=== PATIENT | male | born 1985 | race Hispanic/Latino ===

== ENCOUNTER 2022-12-25 10:30 | Inpatient (IN) | payer OTHER ==
[~2022-12-25] VITALS: Ht 185.4 cm; Wt 212.7 kg
[2022-12-25] MEDS ORDERED: ACETAMINOPHEN 325 MG TAB PO ONE (11:30)
[2022-12-25] MEDS ORDERED: CLONIDINE HCL 0.1 MG TAB ONE (11:41)
[2022-12-25] MEDS ORDERED: ACETAMINOPHEN 325 MG TAB ONE (11:42)
[2022-12-25] MEDS ORDERED: CLONIDINE HCL 0.1 MG TAB PO ONE (12:00)
[2022-12-25] MEDS ORDERED: IOPAMIDOL 370 MG/ML 100 ML INFUS..BTL INJ ONE (12:47)
[2022-12-25] MEDS ORDERED: LIDOCAINE HCL 2% LOCAL INJ 5 ML SDV VIAL INJ ONE (13:33)
[2022-12-25] MEDS ORDERED: PROPOFOL IV EMULSION 10 MG/ML 20 ML VIAL ONE (13:33)
[2022-12-25] MEDS ORDERED: POVIDONE IODINE 0.05% 0.05 % ML PO ONE (13:33)
[2022-12-25] MEDS ORDERED: Vancomycin IV 1 GM in SODIUM CHLORIDE 0.9% 250ML 250 ML IV ONE (13:45)
[2022-12-25] MEDS ORDERED: CEFEPIME HCL 1 GM VIAL ONE (14:30)
[2022-12-25] MEDS ORDERED: Vancomycin IV 1 GM VIAL ONE (14:30)
[2022-12-25] MEDS ORDERED: SODIUM CHLORIDE 0.9% 0 ML ONE (14:31)
[2022-12-25] MEDS ORDERED: METRONIDAZOLE 500MG/NS 100ML 100 ML IV ONE ×2 (15:45→16:58)
[2022-12-25] MEDS ORDERED: SODIUM CHLORIDE FLUSH 10 ML SYR INJ PRN (16:30)
[2022-12-25] MEDS: SODIUM CHLORIDE 0.9% 1000ML 1,000 ML IV SCH (16:59)
[2022-12-25] MEDS ORDERED: SODIUM CHLORIDE 0.9% 1000ML 1,000 ML ONE (16:59)
[2022-12-25 21:57] VITALS: BP 159/92; PULSE 95; RESP 20; TEMP 98.2; O2SAT 99
[2022-12-25 21:58] VITALS: BP 159/92; PULSE 95; RESP 20; TEMP 98.2; O2SAT 99
[2022-12-25 22:20] VITALS: BP 159/92; PULSE 95; RESP 20; TEMP 98.2; O2SAT 99
[2022-12-26] VITALS (10 sets, daily range): BP systolic 144–173; BP diastolic 78–96; PULSE 88–101; RESP 18–20; TEMP 97.9–98.6; O2SAT 95–100
[2022-12-26] MEDS ORDERED: ALBUTEROL/IPRATROPIUM 3 ML NEB NEB PRN (00:30)
[2022-12-26] MEDS ORDERED: HYDRALAZINE HCL 20 MG/ML VIAL IV PRN (00:30)
[2022-12-26] MEDS ORDERED: BENZONATATE 100 MG CAP PO PRN (00:30)
[2022-12-26] MEDS ORDERED: ACETAMINOPHEN 325 MG TAB PO PRN (00:30)
[2022-12-26] MEDS ORDERED: POTASSIUM CHLORIDE 20 MEQ TAB CR PO PRN (00:30)
[2022-12-26] MEDS ORDERED: ONDANSETRON HCL INJ 2MG/ML 2ML 2 MG/ML VIAL IV PRN ×2 (00:30→08:00)
[2022-12-26] MEDS ORDERED: DOCUSATE SODIUM 100 MG CAP PO PRN (00:30)
[2022-12-26] MEDS ORDERED: DEXTROSE 50% SYRINGE 50 ML IV PRN ×2 (00:30)
[2022-12-26] MEDS ORDERED: HYDROCODONE/APAP 5MG-325MG TAB PO PRN ×2 (00:30→08:00)
[2022-12-26] MEDS ORDERED: SIMETHICONE 80 MG CHEW PO PRN (00:30)
[2022-12-26] MEDS ORDERED: LIDOCAINE 4% PATCH TP PRN (00:30)
[2022-12-26] MEDS ORDERED: MELATONIN 5 MG TABLET PO PRN (00:30)
[2022-12-26] MEDS ORDERED: DIPHENHYDRAMINE HCL 25 MG CAP PO PRN (00:30)
[2022-12-26] MEDS ORDERED: ALBUTEROL SULF 0.083% NEB SOLN 3 ML NEB NEB PRN (00:45)
[2022-12-26] MEDS ORDERED: IPRATROPIUM BROMIDE 0.02% 2.5 ML NEB NEB PRN (01:00)
[2022-12-26] MEDS: Vancomycin IV 1.5 GM in SODIUM CHLORIDE 0.9% 250ML 250 ML IV SCH ×2 (02:56→11:44)
[2022-12-26] MEDS: SODIUM CHLORIDE 0.9% 1000ML 1,000 ML IV SCH ×2 (02:58→11:53)
[2022-12-26] MEDS ORDERED: LIDOCAINE HCL 1% LOCAL INJ 20 ML VIAL ONE (07:02)
[2022-12-26] MEDS: PANTOPRAZOLE SOD 40 MG TABEC PO SCH (07:30)
[2022-12-26] MEDS: INSULIN LISPRO 100 UNIT/1 ML 3ML VIAL SQ SCH ×4 (07:30→22:29)
[2022-12-26 07:35] LABS: ALBUMIN 3.4 g/dL (3.5-5.0); ALBUMIN/GLOBULIN RATIO 0.8 (0.8-2.0); ANION GAP 14.5 mmol/L (8-16); CALCIUM 8.8 mg/dL (8.4-10.2); CREATININE, SERUM 0.77 mg/dL (0.72-1.25); MAGNESIUM 1.8 MG/DL (1.3-2.1); POTASSIUM 4.5 mmol/L (3.5-5.1)
[2022-12-26 07:37] LABS: THYROID STIMULATING HORMONE 1.674 uIU/mL (0.350-4.940)
[2022-12-26] MEDS ORDERED: LISINOPRIL 20 MG TAB PO ONE (09:00)
[2022-12-26] MEDS ORDERED: FENTANYL CITRATE/PF 100MCG/2 ML INJ ONE (13:32)
[2022-12-26] MEDS ORDERED: MIDAZOLAM HCL 2 MG/2 ML VIAL ONE (13:32)
[2022-12-26] MEDS: ENOXAPARIN SOD INJ 40 MG/0.4 ML SYR SC SCH (17:46)
[2022-12-27] VITALS (10 sets, daily range): BP systolic 145–155; BP diastolic 78–91; PULSE 85–96; RESP 18–22; TEMP 97.7–98.5; O2SAT 94–100
[2022-12-27] MEDS: Vancomycin IV 1.5 GM in SODIUM CHLORIDE 0.9% 250ML 250 ML IV SCH ×2 (01:13→12:47)
[2022-12-27 05:00] LABS: BASOPHILS % 0.4 % (0.0-1.0); EOSINOPHILS # (AUTO) 0.2 (0.0-0.4); EOSINOPHILS % 2.7 % (0.0-6.0); HEMATOCRIT 39.3 % (38.2-49.6); HEMOGLOBIN 12.7 g/dL (14.0-18.0); LYMPHOCYTES # (AUTO) 2.5 (1.0-3.2); LYMPHOCYTES % 27.5 % (18.0-39.1); MEAN CORPUSCULAR HEMOGLOBIN 28.3 pg (28-32); MEAN CORPUSCULAR HGB CONC 32.3 g/dL (31-35); MEAN CORPUSCULAR VOLUME 87.5 fL (81-99); MONOCYTES # (AUTO) 0.5 (0.2-0.8); NEUTROPHILS # (AUTO) 5.6 (2.1-6.9); NEUTROPHILS % 62.2 % (38.7-80.0); PLATELET COUNT 305 x10e3/uL (140-360); RED BLOOD COUNT 4.49 x10e6/uL (4.3-5.7); RED CELL DISTRIBUTION WIDTH 13.7 % (11.7-14.4)
[2022-12-27 05:18] LABS: ANION GAP 11.8 mmol/L (8-16); CALCIUM 8.6 mg/dL (8.4-10.2); CREATININE, SERUM 0.72 mg/dL (0.72-1.25); POTASSIUM 3.8 mmol/L (3.5-5.1)
[2022-12-27] MEDS: INSULIN LISPRO 100 UNIT/1 ML 3ML VIAL SQ SCH ×4 (07:30→21:00)
[2022-12-27] MEDS: PANTOPRAZOLE SOD 40 MG TABEC PO SCH (09:18)
[2022-12-27] MEDS: ENOXAPARIN SOD INJ 40 MG/0.4 ML SYR SC SCH (17:15)
[2022-12-28] VITALS (8 sets, daily range): BP systolic 122–177; BP diastolic 72–96; PULSE 71–88; RESP 18–22; TEMP 97.3–98.4; O2SAT 95–100
[2022-12-28] MEDS: Vancomycin IV 1.5 GM in SODIUM CHLORIDE 0.9% 250ML 300 ML IV SCH ×2 (00:32→12:00)
[2022-12-28] MEDS: INSULIN LISPRO 100 UNIT/1 ML 3ML VIAL SQ SCH ×3 (07:30→16:30)
[2022-12-28] MEDS: PANTOPRAZOLE SOD 40 MG TABEC PO SCH (08:39)
[2022-12-28] MEDS ORDERED: LOSARTAN POTASS25 MG PO (11:19)
[2022-12-28] MEDS ORDERED: ONDANSETRON HCL 4 MG ORAL DISINTEGRATING TAB PO PRN (11:45)
[2022-12-28] MEDS ORDERED: DOXYCYCLINE HY100 MG PO (16:58)
[2022-12-28] MEDS ORDERED: CIPRO500 MG PO (16:59)
[2022-12-28] MEDS: ENOXAPARIN SOD INJ 40 MG/0.4 ML SYR SC SCH (17:00)
== END 2022-12-28 18:06 | disposition home or self-care (01) | DRG 603 ==
LOC: FSED 11:30 → ERHOLD 16:25 → MED/SURG3 20:28 → OBSVTOIN 12-27 14:44
PROVIDERS: ADMIT Internal Medicine; ATTEND Internal Medicine
PROC: 0J950ZZ Drainage of Left Neck Subcutaneous Tissue and Fascia, Open Approach (ICD-10-PCS; principal; 2022-12-26 07:30)
DX: L02.11 Cutaneous abscess of neck (principal); Z68.44 Body mass index [BMI] 60.0-69.9, adult; L03.221 Cellulitis of neck; E66.01 Morbid (severe) obesity due to excess calories; I10 Essential (primary) hypertension; Z91.148 Patient's other noncompliance with medication regimen for other reason; G47.00 Insomnia, unspecified
CPT/HCPCS: 36415; 70491; 80048; 80053; 80061; 80202; 82948; 83036; 83735; 84443; 85025; 87040; 87071; 87075; 87205; 94799; 99284; G0378; J0692; J1650; J2001; J2250; J7030; J7050; Q9967